=== PATIENT | female | born 1980 | race Caucasian/White ===

== ENCOUNTER 2017-01-29 05:09 | Inpatient (IN) | payer BC ==
[~2017-01-29] VITALS: Ht 165.1 cm; Wt 97.1 kg
[2017-01-29] VITALS (13 sets, daily range): BP systolic 110–150; BP diastolic 54–87
[~2017-01-29 05:09] MED LIST: BACLOFEN10 MG ORAL; CYMBALTA30 MG ORAL; FISH OIL CAP1000 MG ORAL; TRAZODONE HCL100 MG ORAL; VITAMIN D1000 UNI1 ORAL
[2017-01-29] MEDS ORDERED: Pantoprazole Inj IVP ONE (06:00)
[2017-01-29] MEDS ORDERED: Vancomycin 1gm/D5W 275ml IVPB ONE ×2 (06:00)
[2017-01-29 06:12] LABS: APPEARANCE,URINE CLEAR; KETONES,URINE 1+ (NEGATIVE); LEUKOCYTE ESTERASE ,URINE 3+ (NEGATIVE); NITRITE,URINE NEGATIVE (NEGATIVE); PH,URINE 5 (4.5-8.0); PROTEIN,URINE 1+ (NEGATIVE); UROBILINOGEN,URINE NORMAL MG/DL (0.0-1.0)
[2017-01-29] MEDS ORDERED: Bupivacaine w/Epi 0.5% 30ml Vial INJ ONE (06:15)
[2017-01-29] MEDS ORDERED: Bacitracin Oint 15gm Tube TOPIC ONE (06:15)
[2017-01-29] MEDS ORDERED: Thrombin 5000 units TOPIC ONE ×2 (06:15→11:37)
[2017-01-29] MEDS ORDERED: Bacitracin 50000 Units Vial ONE (06:16)
[2017-01-29] MEDS ORDERED: Vancomycin 1gm inj IVPB ONE ×2 (06:17→06:28)
[2017-01-29 06:18] LABS: BACTERIA,URINE FEW /HPF; RBC,URINE 0-2 /HPF (0 - 2); SQUAMOUS EPITHELIAL CELL,UR FEW /LPF (NONE/OCC)
[2017-01-29] MEDS ORDERED: Magnesium Sulfate 2ml Inj ONE (07:30)
[2017-01-29] MEDS ORDERED: Neostigmine 1mg/ml 10ml Inj ONE (07:30)
[2017-01-29] MEDS ORDERED: Zemuron 50mg/5ml Inj IV ONE (07:30)
[2017-01-29] MEDS ORDERED: fentaNYL 250mcg/5ml ONE (07:30)
[2017-01-29] MEDS ORDERED: Protamine Sulfate Inj ONE (07:30)
[2017-01-29] MEDS ORDERED: LR 1000ml ONE ×2 (07:30)
[2017-01-29] MEDS ORDERED: Dexamethasone 4mg/ml vial ONE (07:30)
[2017-01-29] MEDS ORDERED: Lidocaine 1% MPF 10mg/ml 5ml ONE (07:30)
[2017-01-29] MEDS ORDERED: Propofol 10mg/ml 20ml IV ONE (07:30)
[2017-01-29] MEDS ORDERED: Glycopyrrolate 0.2mg/ml 1ml Vial ONE (07:30)
[2017-01-29] MEDS ORDERED: LR 1000ml 1,000 ML IVLG SCH (07:36)
--- NOTE | 2017-01-29 07:38 | Anethesia Preoperative Eval ---
Anesthesia Pre-op PMH/ROS General Date of Evaluation: Jan 29, 2017 Time of Evaluation: 07:31 Anesthesiologist: Onel ASA Score: ASA 2 Mallampati Score Class I : Soft palate, uvula, fauces, pillars visible Class II: Soft palate, uvula, fauces visible Class III: Soft palate, base of uvula visible Class IV: Only hard plate visible Mallampati Classification: Class II Surgeon: Jose Roberto Diagnosis: Back Pain Surgical Procedure: PLIF L5-S1 Anesthesia History: none Family History: no anesthesia problems Allergies: Coded Allergies: No Known Allergies (Unverified , 01/28/17) Medications: see eMAR Past Medical History Hematology/Immune: Reports: anemia Other: obesity - BMI 36 Anesthesia Pre-op Phys. Exam Physician Exam Last Vital Signs Date Time Temp Pulse Resp B/P Pulse Ox O2 Delivery O2 Flow Rate FiO2 01/29/17 05:59 97.7 68 20 110/68 96 Room Air Constitutional: NAD Neurologic: CN 2-12 intact Cardiovascular: RRR Respiratory: CTA Gastrointestinal: S/NT/ND Airway Exam Mallampati Score: Class II MO: full ROM: limited Teeth: intact Anesthesia Pre-op A/P Risk Assessment & Plan Assessment: ASA 2 Plan: GA, Glidescope, BIS Status Change Before Surgery: No Pre-Antibiotics Dru Gram Vancomycin IV Given Within 1 Hr of Incision: Yes Time Given: 07:32 Abner Sykes MD Jan 29, 2017 07:38
--- NOTE | 2017-01-29 07:39 | Immediate Post-Op Evaluation ---
Immediate Post-Op Evalulation Immediate Post-Op Evalulation Procedure: PLIF L5-S1 Date of Evaluation: Jan 29, 2017 Time of Evaluation: 13:52 IV Fluids: 1200 LR Blood Products: 0 Estimated Blood Loss: 100 Urinary Output: 600 Blood Pressure Systolic: 150 Blood Pressure Diastolic: 81 Pulse Rate: 84 Respiratory Rate: 16 O2 Sat by Pulse Oximetry: 100 Temperature (Fahrenheit): 97.1 Pain Score (1-10): 2 Nausea: No Vomiting: No Complications 0 Patient Status: awake, reacts, patent, extubated, none Hydration Status: adequate Dru Gram Vancomycin IV Given Within 1 Hr of Incision: Yes Time Given: 07:32 Abner Sykes MD Jan 29, 2017 07:39
--- NOTE | 2017-01-29 07:39 | Pre-Procedure Note/Attestation ---
Pre-Procedure Note/Attestation Complete Prior to Procedure Planned Procedure: bilateral Procedure Narrative: Posterior lumbar decompression L5-S1, Interbody fusion at L5-S1 with PEEK interbody graft, allograft, autograft and bone marrow aspiration, posterolateral fusion and pedicle screw fixation. Attestation I attest that I discussed the nature of the procedure; its benefits; risks and complications; and alternatives (and the risks and benefits of such alternatives ), prior to the procedure, with the patient (or the patient's legal guest services representative). I attest that, if there was a reasonable possibility of needing a blood transfusion, the patient (or the patient's legal guest services representative) was given the [place] [facility] [employer] [facility] standardized written summary, pursuant to the Al[place] Joaquín Blood Safety Act ([place] Health and Safety Code # 1645, as amended). I attest that I re-evaluated the patient just prior to the surgery and that there has been no change in the patient's H&P, except as documented below: ZHEN HOLCOMB Jan 29, 2017 07:39
[2017-01-29] MEDS ORDERED: Labetalol 5mg/ml 20ml vial IV PRN (07:45)
[2017-01-29] MEDS ORDERED: Ketorolac 60mg Inj IV PRN (07:45)
[2017-01-29] MEDS ORDERED: Midazolam 2mg/2ml Inj IVP PRN (07:45)
[2017-01-29] MEDS ORDERED: Oxycodone/Acetaminophen 5-325 ORAL PRN (07:45)
[2017-01-29] MEDS ORDERED: Atropine Inj 1mg/10ml Syr IV PRN (07:45)
[2017-01-29] MEDS ORDERED: fentaNYL 100 mcg/2 mL IV PRN (07:45)
[2017-01-29] MEDS ORDERED: DiphenhydrAMINE 50mg/ml Inj IVP PRN ×2 (07:45→14:00)
[2017-01-29] MEDS ORDERED: Norco 7.5mg/325mg tab ORAL PRN (07:45)
[2017-01-29] MEDS ORDERED: Ketorolac 30mg Inj IV PRN (07:45)
[2017-01-29] MEDS ORDERED: Norco 5mg/325mg tab ORAL PRN (07:45)
[2017-01-29] MEDS ORDERED: Meperidine 25mg/ml Inj IV PRN (07:45)
[2017-01-29] MEDS ORDERED: Metoclopramide 10mg/2ml Inj IVP PRN (07:45)
[2017-01-29] MEDS ORDERED: Acetaminophen (Non formulary) 1,000 MG/100 ML ML IV ONE (08:00)
[2017-01-29] MEDS ORDERED: Gelfoam Absorbable 1gm powder pkt TOPIC ONE (08:23)
[2017-01-29] MEDS: Thrombin 5000 units spray kit TOPIC ONE ×3 (09:40→09:54)
[2017-01-29] MEDS: LORazepam Inj 2mg/ml 1ml IV PRN ×2 (13:57→14:23)
[2017-01-29] MEDS ORDERED: Rate Change PCA 1 Each MISC PRN (14:00)
[2017-01-29] MEDS ORDERED: LORazepam 1mg tab ORAL PRN (14:00)
[2017-01-29] MEDS ORDERED: PCA HYDROmorphone 1mg/ml 30 ML IV PRN (14:00)
[2017-01-29] MEDS ORDERED: Naloxone 0.4mg/ml Inj IVP PRN (14:00)
--- NOTE | 2017-01-29 14:19 | Brief Operative Note ---
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 R sided L5 hemilaminectomy foraminotomy and medial facetectomy 2. R transforaminal approach L5-S1 for decompression of nerve root with complete osteotomies of the inferior L5 Facet 3. Osteotomy L L5 Facet 4. Radical discectomy and preparation of disc space at L5-S1 5. Insertion of 8 mm Spinal element PEEK interbody spacer, autograft, allograft and bone marrow aspirate 6. Aspiration of iliac crest bone marrow from the Right side for fusion. 7. Internal neurolysis of the Right L5 and S1 roots 8. Application of epidural fat graft at L5-S1 9 Transpedicular fixation at the L5 and S1 levels bilaterally with 6 x 50 and 6 by 55 mm screws Medacta 10. [place] of bone from laminectomy for fusion 11. Intra-operative microdissection using operative microscope 12. Intra-op neuromonitoring, SSEPs, free-run EMG and Dermatomal monitoring and pedicle screw stimulation. 13. Posterolateral arthrodesis using allograft, autograft and bone marrow aspirate Bilaterally at L5-S1 14. Placement of epidural drain L5-S1 15. Plastic surgical closure of lumbar wound 9-cm 16. Modifier 22 due to complexity of the case and depth of approach secondary to pt's obesity. Post-op Diagnosis: same as pre-op Findings: consistent w/pre-op dx studies Surgeon: Wally Cid M.D. Sales Representative Door To Door: Oscar Gaspar M.D. Anesthesiologist: Dr. Onel GARCIA Anesthesia: general Specimen: yes - Disc Complications: none Condition: stable Fluids: 1.0 liter Estimated Blood Loss: volume - 100.00 Drains: hemovac Implant(s) used?: Yes - Spinal elements Interbody PEEK, Medacta Pedicle screws and [place] Allograft WALLY CID Jan 29, 2017 14:19
[2017-01-29] MEDS: Hydromorphone 0.5mg/0.5ml inj IVP PRN ×2 (14:22→14:59)
[2017-01-29] MEDS ORDERED: Milk of Magnesia 30ml Ud ORAL PRN (14:30)
[2017-01-29] MEDS ORDERED: Cyclobenzaprine 10mg Tab ORAL PRN (14:30)
--- NOTE | 2017-01-29 14:33 | General Progress Note ---
Progress Note Progress Note Neurosurgery Post-op S/ Comfortable. 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
[2017-01-29] MEDS: NS w/KCl 20mEq 1,000 ML IV SCH (17:05)
--- NOTE | 2017-01-29 17:20 | Diagnostic Imaging Report ---
Indication: PAIN, intraoperative imaging Technique: Digital intraoperative images Comparison: The Findings: Intraoperative images document localizer images, subsequent posterior fusion with placement of disc spacer and what appears to be L5-S1. Impression: Intraoperative imaging, as described
[2017-01-29] MEDS: Docusate 100mg tablet ORAL SCH (17:46)
[2017-01-29] MEDS: PCA shift volume MISC SCH (19:07)
[2017-01-29] MEDS: Vancomycin 1 GM in D5W 275 ML IVPB SCH (19:58)
[2017-01-29] MEDS: TraZODone 100mg tab ORAL SCH (21:02)
--- NOTE | 2017-01-29 23:48 | Operative Note - Dictated ---
DATE OF OPERATION: 01/29/2017 PREOPERATIVE DIAGNOSES: 1. Intractable severe low back pain and lower extremity radiculopathy, right side. 2. Bilateral pars defects, spondylolysis with grade 1 anterolisthesis of L5-S1. 3. Lack of improvement from multimodality treatment and interventional pain injections including lumbar epidural injections. POSTOPERATIVE DIAGNOSES: 1. Intractable severe low back pain and lower extremity radiculopathy, right side. 2. Bilateral pars defects, spondylolysis with grade 1 anterolisthesis of L5-S1. 3. Lack of improvement from multimodality treatment and interventional pain injections including lumbar epidural injections. PROCEDURES: 1. Posterior lumbar approach exposure of L5-S1 level bilaterally through intermuscular approach. 2. Right L5 hemilaminectomy, medial facetectomy, and foraminotomy with central and lateral recess decompression. 3. Right transforaminal approach L5-S1 level for decompression of nerve roots with complete osteotomies of the inferior facet of L5 and superior facet of S1. 4. Osteotomy of left inferior L5 facets for decompression of nerve roots. 5. Complete radical diskectomy of the L5-S1 level preparation of disk space, insertion of biomechanical device, PEEK cage interbody spacer 8 mm filled with autologous bone graft, allograft, and bone marrow aspirate. 6. Aspiration of bone marrow and aspiration of the right iliac crest for fusion. 7. Internal neurolysis of the right L5 and S1 nerve roots. 8. Transpedicular fixation of the L5 and S1 pedicles bilaterally using 6 x 50 mm and 6 x 55 mm screws, Hospicelinkacta system. 9. Application of fat graft through the epidural space, L5-S1 level. 10. [place] of bone from laminectomy for fusion. 11. Intraoperative microdissection using operative microscope. 12. Intraoperative neuromonitoring using somatosensory evoked potentials, free run electromyography, dermatomal monitoring, and pedicle screw stimulation. 13. Posterolateral arthrodesis using allograft, autograft, and bone marrow aspirate bilaterally at L5-S1 level. 14. Placement of epidural drain for the L5-S1 level on the right. 15. Plastic surgical closure of lumbar wound, 9 cm. 16. Modifier 22 will be used due to the complexity of the case and the depth of approach due to the patient's obesity. SURGEON: Wally Cid M.D. VB NET PROGRAMMER: Ciro Gaspar M.D. ANESTHESIOLOGIST: Dr. Alejandra. ANESTHESIA TYPE: General endotracheal anesthesia. ESTIMATED BLOOD LOSS: 100 mL. IV FLUIDS: One liter. SPECIMEN: Disk. INDICATION: The patient is a pleasant 36-year-old woman with severe low back pain with radiation of pain to the right lower extremity. She has undergone wide spectrum multimodality treatment including interventional pain injections in her lumbar region without improvement. IMAGING: Studies of the lumbar spine including MRI, CT scan, and x-rays were obtained, which showed evidence of bilateral spondylolysis at the L5-S1 level with anterolisthesis of L5-S1 with severe bilateral neural foraminal compromise. The risk of the operation including but not limited to risk of infection, bleeding, nerve damage, paralysis, coma, , spinal fluid leakage, requiring revision surgery, mishaps with anesthesia including coma and . Pseudoarthrosis requiring revision surgery, high likelihood of adjacent segment disease requiring additional injections or fusion in the future were all discussed with the patient in detail. She was understanding of my recommendations and signed a consent to proceed. DETAILS OF PROCEDURE: The patient was taken to the operating room. She was identified. She underwent an uneventful endotracheal intubation. She received preincisional IV antibiotics, Decadron and magnesium sulfate. Linton catheter was inserted. Neuromonitoring leads were attached. After an uneventful intubation, she was placed prone on a Darvin table. Care was taken to pad all pressure points including shoulders, elbows, wrists, knees, and hips. Back was prepped. Fluoroscopic images were obtained to localize the lumbar anatomy. Back was then prepped and draped in sterile fashion. A time-out was observed and the circulating nurse called the time-out. Microscope was brought to the field. The entire case was done under microscopic magnification. Using a #10 blade, incision was made in the lumbar region. Bleeders from the skin edges were coagulated using bipolar cautery. Dissection was carried down to the deep layer of the subcutaneous fascia. The deep subcutaneous fascia was opened. A fat specimen was then removed and placed in antibiotic irrigation solution. Two paramedian approaches were then created by incising the lumbodorsal fascia approximately 2.5 cm from midline. A plane was then developed between the multifidus and longissimus planes bilaterally down to the L5-S1 facet capsule complex. The intraoperative fluoroscopic images were obtained to localize and verify the correct level. Using high-speed drill, a left-sided osteotomy was performed of the inferior facet of L5. Pedicle screw pathways were created and a posterolateral arthrodesis was also performed by decorticating the L5 facet joint laterally placing bone in the posterolateral gutter. Two pedicle screws 6 mm, first one 50 mm and second one 55 mm were inserted at the S1 and L5 pedicle on the left side. EMG remained quiet through the insertion process. The attention was given to the right side. Again an intermuscular approach was created to the L5-S1 level. The L5 lamina was identified. The L5 lamina was highly mobile and loose due to the bilateral pars defect as observed on the left side. Using a osteotome, the inferior facet of L5 was completely removed along with a partial superior S1 facet. This provided significant decompression of the foraminal portion and decompressing the L5 foramen. A right transforaminal approach was then created to decompress the nerve root and gain access to the lateral aspect of the disk. Intraoperative neuromonitoring showed approximately 4 millisecond delay in the right S1 nerve root prior to decompression. The pedicle pathways were then created for the L5-S1 level on the right side using a gearshift. The screw path was tapped and then screws were placed measuring 50 x 6 mm and 6 x 55 mm at S1 and L5 levels respectively. Intraoperative fluoroscopic view was performed throughout the insertion process to verify the correct positioning of the screws and the modifier 22 will be used due to the great depth of the surgical corridor and difficulty in complexity of the case. After decompression of the central canal and the lateral recess at the L5-S1 level, a wide foraminotomy for the S1 nerve root was created using Kerrison punch. Decompression was carried out laterally to the level of the pedicle. Using microsurgical technique, the epidural adhesions wre carefully mobilized and incised with microscissor, and epidural veins were coagulated and incised to mobilize the Right L5 and S1 roots. Internal neurolysis was performed in this manner for both the right L5 and S1 roots. Both the L5 and S1 pedicles were palpable in the medial aspect. The L5-S1 disk space was then identified. The thecal sac was gently moved medially and well padded with Gelfoam and cottonoids. Using a #15 knife, an annulotomy was performed. The dissection was then carried out using pituitary rongeur and multiple sizers and cr that were sequentially inflated into the L5-S1 levels for the diskectomy process. After adequate preparation of the L5-S1 disk space, a 8 mm cage was then filled with autologous bone graft, Ekaterina, and bone marrow aspirate. A Jamshidi needle was used through a separate fascial incision to obtain 30 mL of bone marrow aspirate from the right iliac crest. The bone marrow aspirate was then handed off to a infrastructure technician, who then returned approximately 3 mL of highly concentrated bone marrow aspirate to the field. This concentrate was mixed with Gilliam and autologous bone graft prior to the insertion into the disk space. After insertion of the cage, the pedicle screws were tested, which showed no evidence of electrical breach. 35 mm rods were then used to perform the posterolateral arthrodesis along with autologous bone graft and allograft. Set screws were then inserted and the francis was fixed in place and torqued properly. The wound was irrigated with copious amount of antibiotic irrigation. Final fluoroscopic images showed excellent position of the cage and pedicle screws also. The dorsal fascia layers were closed using 2-0 Vicryl stitches. The wound was irrigated with copious amount of antibiotic irrigation. The rest of the incision was also closed using plastic surgical technique in multiple layer including the subcuticular layer. The subcuticular layer was closed using 3-0 Vicryl stitches in interrupted fashion. Skin was dressed with Dermabond and Steri-Strips. A Hemovac drain was also inserted on the right side over the decompression at the L5-S1 level and brought out through a separate stab incision. The drain was secured to the skin using Steri-Strips and a sterile dressing gauze. The patient was then extubated at the end of the case moving all extremities. The patient's family were also notified about the patient's condition at the end of the case. COMPLICATIONS: None. Wally Cid M.D. DR: Howard JOB#: [id number] CC: ZAIN
[2017-01-30] VITALS: BP 102/57
[2017-01-30 04:00] VITALS: BP 110/70
[2017-01-30] MEDS: NS w/KCl 20mEq 1,000 ML IV SCH ×2 (04:19→15:30)
[2017-01-30 06:32] LABS: BASOPHILS % (AUTO) 0.4 % (0.0-2.0); LYMPHOCYTES % (AUTO) 10.5 % (20.0-45.0); MEAN CORPUSCULAR HEMOGLOBIN 28.2 PG (27.0-31.0); MEAN CORPUSCULAR HGB CONC 32.3 G/DL (32.0-36.0); MEAN CORPUSCULAR VOLUME 87 FL (80-99); MEAN PLATELET VOLUME 8.6 FL (6.5-10.1); MONOCYTES % (AUTO) 8.6 % (1.0-10.0); NEUTROPHILS % (AUTO) 80.4 % (45.0-75.0); PLATELET COUNT 233 K/UL (150-450); RED BLOOD COUNT 4.16 M/UL (4.20-5.40); WHITE BLOOD COUNT 12.6 K/UL (4.8-10.8)
[2017-01-30 06:40] LABS: ANION GAP 7 (5-15); CALCIUM 7.9 mg/dL (8.6-10.2); CARBON DIOXIDE 28 mEQ/L (20-30); CHLORIDE 104 mEQ/L (98-107); CREATININE 0.9 mg/dL (0.5-0.9); GLOMERULAR FILTRATION RATE > 60 mL/min (>60); HEMOLYSIS 1; MAGNESIUM 2.1 mg/dL (1.7-2.5); POTASSIUM 4.6 mEQ/L (3.4-4.9); SODIUM 139 mEQ/L (135-145)
[2017-01-30] MEDS: PCA shift volume MISC SCH (07:17)
[2017-01-30 08:00] VITALS: BP 104/78
[2017-01-30] MEDS: Docusate 100mg tablet ORAL SCH ×2 (09:07→18:29)
[2017-01-30] MEDS: Vancomycin 1 GM in D5W 275 ML IVPB SCH (09:07)
[2017-01-30] MEDS: DULoxetine 30mg cap ORAL SCH (09:07)
[2017-01-30 12:00] VITALS: BP 131/63
--- NOTE | 2017-01-30 12:55 | 48 Hour Post Anesthesia Eval ---
Post Anesthesia Evaluation Procedure: PLIF L5-S1 Date of Evaluation: Jan 30, 2017 Time of Evaluation: 12:53 Blood Pressure Systolic: 104 0: 64 Pulse Rate: 62 Respiratory Rate: 20 Temperature (Fahrenheit): 97.6 O2 Sat by Pulse Oximetry: 98 Airway: patent Nausea: No Vomiting: No Pain Intensity: 3 Hydration Status: adequate Cardiopulmonary Status: stable Mental Status/LOC: patient returned to baseline Follow-up Care/Observations: n/a Post-Anesthesia Complications: none Follow-up care needed: N/A ALEJANDRA HALL M.D. Jan 30, 2017 12:55
--- NOTE | 2017-01-30 13:09 | Diagnostic Imaging Report ---
Indications: Low back pain Technique: Continuous helical CT imaging of the lumbar spine was performed with automatic exposure control on a Siemens sensation [address] scanner. Axial, coronal, and sagittal images were reconstructed at 3 mm slice thicknesses. CTDI volume(s): 41 mGy Total DLP: 1387 mGy-cm Findings: Comparison: Lumbar radiographs 01/29/2017 Again noted are several millimeter anterior subluxation of L5 on S1, fusion hardware within the L5-S1 disc space, right hemilaminectomy defect at L5, bilateral pedicle screws within L5 and S1 bridged by longitudinal rods bilaterally. Bilateral pars interarticularis defects are present at L5. Mild swelling and a few gas bubbles are present within the posterior paraspinous soft tissues at these levels. Small caliber catheter extends from the posterior skin surface to the right lateral margin of S1 posterior elements. Spinal canal is difficult to assess at this level due to extensive artifact from metallic fusion hardware. The L1-2 through L3-4 intervertebral disc spaces are normal in height. There is suggestion of very mild annular bulge at L3-4 and L4-5. Facet joints and ligaments at these levels are not overtly hypertrophied. Spinal canal, lateral recesses and neural foramina at these levels are not overtly narrowed. Remainder of vertebral alignment is intact. The L1 vertebral body demonstrates mild compression of the superior endplate with less than 10% height loss, minimal retropulsion. No associated lucent fracture line, posterior element involvement, or underlying lytic destructive process. Remaining lumbar vertebral bodies normal in height. Focal sclerosis in T12 vertebral body. IMPRESSION: Evidence of recent right hemilaminectomy, anterior and posterior fusion at L5-S1. Posterior paraspinous soft tissue swelling and gas are within normal limits for recent postoperative state. Spinal canal difficult to assess due to artifact as described. L5 bilateral spondylolysis, grade 1 anterior spondylolisthesis Mild annular disc bulges at L3-4 and L4-5 without obvious spinal stenosis/neural impingement Mild compression fracture L1 vertebral body superior endplate, probably old
--- NOTE | 2017-01-30 13:26 | General Progress Note ---
Progress Note Progress Note Neurosurgery Post-op 1 S/Pain under control. Too drowsy with Dilaudid ORTHO RN. ORTHO RN was D/c's pt recieved one dose of Narcan. Ct lumbar spine complete O/ Vs Last 24 Hour Vital Signs Date Time Temp Pulse Resp B/P Pulse Ox O2 Delivery O2 Flow Rate FiO2 01/30/17 12:55 62 20 98 01/30/17 08:00 17 01/30/17 08:00 97.7 87 18 104/78 94 Room Air 01/30/17 04:00 97.6 73 19 110/70 88 Room Air 01/30/17 04:00 18 01/30/17 03:56 97.8 01/30/17 00:00 18 01/30/17 00:00 97.8 61 19 102/57 90 Room Air 01/29/17 20:00 18 01/29/17 20:00 97.7 79 20 118/59 88 Room Air 01/29/17 16:00 18 01/29/17 16:00 97.9 69 17 111/87 96 Room Air 01/29/17 15:30 16 01/29/17 15:15 97.8 77 11 112/54 98 Nasal Cannula 3.0 01/29/17 15:10 97.1 01/29/17 15:10 97.1 01/29/17 15:05 11 01/29/17 15:05 76 11 111/56 98 Nasal Cannula 3.0 01/29/17 14:50 73 12 120/59 100 Nasal Cannula 3.0 01/29/17 14:50 15 01/29/17 14:50 97.1 01/29/17 14:35 68 13 120/60 100 Nasal Cannula 3.0 01/29/17 14:35 11 01/29/17 14:26 97.1 01/29/17 14:20 80 11 120/73 100 Nasal Cannula 3.0 01/29/17 14:20 15 01/29/17 14:06 71 15 120/62 100 Nasal Cannula 3.0 01/29/17 13:56 70 17 119/62 100 Nasal Cannula 3.0 01/29/17 13:51 68 17 129/64 100 Simple Mask 6.0 01/29/17 13:46 75 17 134/74 100 Simple Mask 6.0 01/29/17 13:41 97.1 78 24 150/85 100 Simple Mask 6.0 01/29/17 13:41 84 16 100 Alert and oriented, C/o of H/A Face symmetric. Moves all extremities well normal sensation in the face and all extremities Dressing completely dry. No fluctuance Drain about 60 cc serosang clear drainage Labs. Laboratory Tests Test 01/30/17 05:45 White Blood Count 12.6 K/UL (4.8-10.8) H Red Blood Count 4.16 M/UL (4.20-5.40) L Hemoglobin 11.8 G/DL (12.0-16.0) L Hematocrit 36.4 % (37.0-47.0) L Mean Corpuscular Volume 87 FL (80-99) Mean Corpuscular Hemoglobin 28.2 PG (27.0-31.0) Mean Corpuscular Hemoglobin Concent 32.3 G/DL (32.0-36.0) Red Cell Distribution Width 13.0 % (11.6-14.8) Platelet Count 233 K/UL (150-450) Mean Platelet Volume 8.6 FL (6.5-10.1) Neutrophils (%) (Auto) 80.4 % (45.0-75.0) H Lymphocytes (%) (Auto) 10.5 % (20.0-45.0) L Monocytes (%) (Auto) 8.6 % (1.0-10.0) Eosinophils (%) (Auto) 0.0 % (0.0-3.0) Basophils (%) (Auto) 0.4 % (0.0-2.0) Sodium Level 139 mEQ/L (135-145) Potassium Level 4.6 mEQ/L (3.4-4.9) Chloride Level 104 mEQ/L (98-107) Carbon Dioxide Level 28 mEQ/L (20-30) Anion Gap 7 (5-15) Blood Urea Nitrogen 10 mg/dL (7-23) Creatinine 0.9 mg/dL (0.5-0.9) Estimat Glomerular Filtration Rate > 60 mL/min (>60) Glucose Level 127 mg/dL (74-106) H Calcium Level 7.9 mg/dL (8.6-10.2) L Magnesium Level 2.1 mg/dL (1.7-2.5) CT Lumbar spine reviewed Instrumentation in good position at the L5-S1 level. No hematoma or fluid collection D/c dilaudid. Change to Morphine sulfate prn and orals Zofram for N/v PT in am spoke with pt's and updated him re Pt's condition. ZHEN HOLCOMB Jan 30, 2017 13:26
[2017-01-30 16:00] VITALS: BP 102/62
[2017-01-30 20:00] VITALS: BP 113/66
[2017-01-30] MEDS: TraZODone 100mg tab ORAL SCH (21:15)
[2017-01-30] MEDS: Morphine Sulfate 2mg/ml Inj IVP PRN (23:49)
[2017-01-31] VITALS: BP 111/59
[2017-01-31] MEDS: NS w/KCl 20mEq 1,000 ML IV SCH ×3 (00:30→21:50)
[2017-01-31] MEDS: Morphine Sulfate 2mg/ml Inj IVP PRN (03:58)
[2017-01-31 04:00] VITALS: BP 101/56
[2017-01-31 08:00] VITALS: BP 122/62
--- NOTE | 2017-01-31 08:08 | General Progress Note ---
Progress Note Progress Note Neurosurgery POD#2 S/ Incisional pain, O/ Vs Last 24 Hour Vital Signs Date Time Temp Pulse Resp B/P Pulse Ox O2 Delivery O2 Flow Rate FiO2 01/31/17 04:28 98.6 01/31/17 04:00 97.9 73 18 101/56 99 Nasal Cannula 3.0 01/31/17 00:00 97.7 76 18 111/59 99 Nasal Cannula 2.0 01/30/17 20:00 98.6 74 18 113/66 100 Nasal Cannula 3.0 01/30/17 16:00 97.9 87 18 102/62 100 Nasal Cannula 2.0 01/30/17 12:55 62 20 98 01/30/17 12:00 96.4 68 20 131/63 99 Nasal Cannula 2.0 Alert and oriented x4 Moves all extremities normal sensation in all lower extremity dermatomes tested, including L4, L5 and S1 Motor exam is 5/5 in all proximal and distal muscle groups tested. Incision is completely dry HV removed at bedside without complications. Imaging findings discussed with patient and her in detail. Encourage ambulation pain control bowel care PT ZHEN HOLCOMB Jan 31, 2017 08:08
[2017-01-31] MEDS ORDERED: Morphine Sulfate 2mg/ml Inj IVP PRN (08:22)
--- NOTE | 2017-01-31 08:24 | General Progress Note ---
Progress Note Progress Note Addendum, A new set of vitals obtained Sat on 3liter NC is 92%. She is no distress. Her color is normal. will obtain ABG, C-XR, Bilateral lower extremity Doppler Medicine consult requested. ZHEN HOLCOMB Jan 31, 2017 08:24
--- NOTE | 2017-01-31 08:29 | General Progress Note ---
Progress Note Progress Note Neurosurgery addendum S/ Able to take deep breath but c/o pain with deep breathing ant chest Sat is 99% on 3liters NC. The initial read of 92% was on R/A will get the diagnostics to r/o DVT. ZHEN HOLCOMB Jan 31, 2017 08:29
[2017-01-31 08:53] LABS: ABG BASE EXCESS 5
[2017-01-31] MEDS: DULoxetine 30mg cap ORAL SCH (09:10)
[2017-01-31] MEDS: Docusate 100mg tablet ORAL SCH ×3 (09:10→18:46)
[2017-01-31] MEDS: Oxycodone/Acetaminophen 5-325 ORAL SCH ×5 (09:10→21:58)
--- NOTE | 2017-01-31 09:58 | Diagnostic Imaging Report ---
Indication: SOB Technique: XRAY CHEST 1 V Comparison:None Findings: The heart is normal in size. The patient is rotated. Linear density is noted in the left medial base. The patient has taken a poor inspiration. No other gross infiltrates. No pleural fluid. Impression: Poor inspiration. Atelectasis left base. No other gross abnormality.
[2017-01-31 12:00] VITALS: BP 110/53
[2017-01-31] MEDS ORDERED: HYDROmorphone 1mg/ml Carpuject SUBQ PRN (14:30)
[2017-01-31] MEDS ORDERED: Norco 7.5mg/325mg tab ORAL PRN ×2 (14:30)
--- NOTE | 2017-01-31 15:55 | General Progress Note ---
Assessment/Plan Status Narrative s/p complex spine surgery doing ok POST OP DAY # 2 PT OT R/O DVT NEGATIVE DUPLEX ABG NOTED ? ELEVATED pco@ ? VENOUS///// DOING BETTER SATURATING WELL ON ROOM AIR NOT TACHYCARDIC WILL CHECK CBC AND UA THE UA WAS SLIGHTLY PYURIC WILL MONITOR DOING BETTER THAN YESTAERDAY PER NURSING STAFF I AM UNBALE TO SEE MY NOTE FROM YESTERDAY. Subjective Date patient seen: Jan 31, 2017 Time patient seen: 15:51 Constitutional: Reports: no symptoms HEENT: Reports: no symptoms Gastrointestinal/Abdominal: Reports: no symptoms Genitourinary: Reports: no symptoms Allergies: Coded Allergies: No Known Allergies (Unverified , 01/28/17) Subjective has had pain no fever doign better walked well no diplopia no nausea Objective Last 24 Hour Vital Signs Date Time Temp Pulse Resp B/P Pulse Ox O2 Delivery O2 Flow Rate FiO2 01/31/17 12:00 97.3 54 16 110/53 94 Nasal Cannula 3.0 01/31/17 10:09 97.5 01/31/17 08:00 97.5 71 16 122/62 99 Nasal Cannula 3.0 01/31/17 04:28 98.6 01/31/17 04:00 97.9 73 18 101/56 99 Nasal Cannula 3.0 01/31/17 00:00 97.7 76 18 111/59 99 Nasal Cannula 2.0 01/30/17 20:00 98.6 74 18 113/66 100 Nasal Cannula 3.0 01/30/17 16:00 97.9 87 18 102/62 100 Nasal Cannula 2.0 Intake and Output 01/30/17 01/31/17 19:00 07:00 Intake Total 1400 ml 500 ml Output Total 400 ml 550 ml Balance 1000 ml -50 ml Intake Oral 200 ml 500 ml IV Total 1200 ml Output Urine Total 400 ml 500 ml Drainage Total 50 ml Laboratory Tests 01/31/17 08:39: Arterial Blood pH 7.410, Arterial Blood Partial Pressure CO2 50.0H, Arterial Blood Partial Pressure O2 97.0, Arterial Blood HCO3 31.0H, Arterial Blood Oxygen Saturation 97.0, Arterial Blood Base Excess 5, Iggy Test Height (Feet): 5 Height (Inches): 5.00 Weight (Pounds): 214 General Appearance: WD/WN Neck: other - no jvd Cardiovascular: normal rate, regular rhythm Respiratory/Chest: respiratory distress - left base diminished breath sound, other - there is no wheezing Abdomen: soft Extremities: other - no edema no clubbing MIKE ARMENTA Jan 31, 2017 15:55
[2017-01-31 16:00] VITALS: BP 123/49
[2017-01-31 17:33] LABS: APPEARANCE,URINE CLEAR; KETONES,URINE NEGATIVE (NEGATIVE); LEUKOCYTE ESTERASE ,URINE NEGATIVE (NEGATIVE); NITRITE,URINE NEGATIVE (NEGATIVE); PH,URINE 6.5 (4.5-8.0); PROTEIN,URINE NEGATIVE (NEGATIVE); UROBILINOGEN,URINE NORMAL MG/DL (0.0-1.0)
[2017-01-31 17:38] LABS: WBC,URINE 0-2 /HPF (0 - 2)
[2017-01-31 18:39] LABS: BASOPHILS % (AUTO) 0.6 % (0.0-2.0); EOSINOPHILS % (AUTO) 0.2 % (0.0-3.0); LYMPHOCYTES % (AUTO) 19.3 % (20.0-45.0); MEAN CORPUSCULAR HEMOGLOBIN 29.4 PG (27.0-31.0); MEAN CORPUSCULAR HGB CONC 33.6 G/DL (32.0-36.0); MEAN CORPUSCULAR VOLUME 88 FL (80-99); MONOCYTES % (AUTO) 7.4 % (1.0-10.0); NEUTROPHILS % (AUTO) 72.5 % (45.0-75.0); PLATELET COUNT 154 K/UL (150-450); RED BLOOD COUNT 3.54 M/UL (4.20-5.40); RED CELL DISTRIBUTION WIDTH 12.9 % (11.6-14.8); WHITE BLOOD COUNT 8.6 K/UL (4.8-10.8)
[2017-01-31 20:00] VITALS: BP 125/57
[2017-01-31] MEDS: TraZODone 100mg tab ORAL SCH (21:50)
[2017-02-01] MEDS: Oxycodone/Acetaminophen 5-325 ORAL SCH ×5 (00:35→17:18)
[2017-02-01 04:00] VITALS: BP 122/69
[2017-02-01 04:57] LABS: BASOPHILS % (AUTO) 0.8 % (0.0-2.0); EOSINOPHILS % (AUTO) 0.7 % (0.0-3.0); LYMPHOCYTES % (AUTO) 19.4 % (20.0-45.0); MEAN CORPUSCULAR HEMOGLOBIN 28.3 PG (27.0-31.0); MEAN CORPUSCULAR HGB CONC 32.5 G/DL (32.0-36.0); MEAN CORPUSCULAR VOLUME 87 FL (80-99); MEAN PLATELET VOLUME 8.6 FL (6.5-10.1); MONOCYTES % (AUTO) 7.8 % (1.0-10.0); NEUTROPHILS % (AUTO) 71.3 % (45.0-75.0); PLATELET COUNT 176 K/UL (150-450); RED BLOOD COUNT 3.53 M/UL (4.20-5.40); RED CELL DISTRIBUTION WIDTH 12.8 % (11.6-14.8); WHITE BLOOD COUNT 8.2 K/UL (4.8-10.8)
[2017-02-01] MEDS: NS w/KCl 20mEq 1,000 ML IV SCH (06:07)
[2017-02-01 08:00] VITALS: BP 122/75
[2017-02-01] MEDS ORDERED: Oxycodone/Acetaminophen 5-325 ORAL PRN (08:15)
[2017-02-01] MEDS: DULoxetine 30mg cap ORAL SCH (08:56)
[2017-02-01] MEDS: Docusate 100mg tablet ORAL SCH ×2 (08:56→17:17)
[2017-02-01] MEDS ORDERED: Lactulose 20gm/30ml UDC ORAL PRN (10:45)
--- NOTE | 2017-02-01 10:50 | General Progress Note ---
Progress Note Progress Note Neurosurgery POD#3 S/ Incisional pain much better. Ambulated yesterday pm. C/o Headache. Improved with Fiorecet. Had a similar Headache "while back" H/a is Frontal. No Nausea/vomiting yesterday or this am. Tolerating po's. No BM O/ Vs Last 24 Hour Vital Signs Date Time Temp Pulse Resp B/P Pulse Ox O2 Delivery O2 Flow Rate FiO2 02/01/17 08:00 98.2 75 18 122/75 95 Room Air 02/01/17 04:00 98.2 68 18 122/69 94 Room Air 01/31/17 20:00 98.2 63 18 125/57 95 Room Air 01/31/17 16:00 98.4 63 18 123/49 94 01/31/17 15:59 96 Room Air 01/31/17 12:00 97.3 54 16 110/53 94 Nasal Cannula 3.0 O/ Alert and oriented x4 Face symmetric pupils reactive and equal Moves all extremities well normal motor and sensory exam bilaterally Labs Laboratory Tests Test 01/31/17 16:45 01/31/17 18:20 02/01/17 04:30 Urine Color Pale yellow Urine Appearance Clear Urine pH 6.5 (4.5-8.0) Urine Specific [place] 1.015 (1.005-1.035) Urine Protein Negative (NEGATIVE) Urine Glucose (UA) Negative (NEGATIVE) Urine Ketones Negative (NEGATIVE) Urine Occult Blood 3+ (NEGATIVE) H Urine Nitrite Negative (NEGATIVE) Urine Bilirubin Negative (NEGATIVE) Urine Urobilinogen Normal MG/DL (0.0-1.0) Urine Leukocyte Esterase Negative (NEGATIVE) Urine RBC 2-4 /HPF (0 - 2) H Urine WBC 0-2 /HPF (0 - 2) Urine Squamous Epithelial Cells None /LPF (NONE/OCC) Urine Bacteria None /HPF (NONE) White Blood Count 8.6 K/UL (4.8-10.8) 8.2 K/UL (4.8-10.8) Red Blood Count 3.54 M/UL (4.20-5.40) L 3.53 M/UL (4.20-5.40) L Hemoglobin 10.4 G/DL (12.0-16.0) L 10.0 G/DL (12.0-16.0) L Hematocrit 31.0 % (37.0-47.0) L 30.8 % (37.0-47.0) L Mean Corpuscular Volume 88 FL (80-99) 87 FL (80-99) Mean Corpuscular Hemoglobin 29.4 PG (27.0-31.0) 28.3 PG (27.0-31.0) Mean Corpuscular Hemoglobin Concent 33.6 G/DL (32.0-36.0) 32.5 G/DL (32.0-36.0) Red Cell Distribution Width 12.9 % (11.6-14.8) 12.8 % (11.6-14.8) Platelet Count 154 K/UL (150-450) 176 K/UL (150-450) Mean Platelet Volume 8.0 FL (6.5-10.1) 8.6 FL (6.5-10.1) Neutrophils (%) (Auto) 72.5 % (45.0-75.0) 71.3 % (45.0-75.0) Lymphocytes (%) (Auto) 19.3 % (20.0-45.0) L 19.4 % (20.0-45.0) L Monocytes (%) (Auto) 7.4 % (1.0-10.0) 7.8 % (1.0-10.0) Eosinophils (%) (Auto) 0.2 % (0.0-3.0) 0.7 % (0.0-3.0) Basophils (%) (Auto) 0.6 % (0.0-2.0) 0.8 % (0.0-2.0) PT/OT Ambulate Bowel care D/c planning Brace on order. Fioricet prn for H/a ZHEN HOLCOMB Feb 01, 2017 10:50
[2017-02-01] MEDS: Milk of Magnesia 30ml Ud ORAL SCH ×2 (11:06→13:38)
[2017-02-01 12:00] VITALS: BP 113/58
[2017-02-01] MEDS ORDERED: NS w/KCl 20mEq 1,000 ML IV SCH (12:00)
[2017-02-01 16:00] VITALS: BP 117/74
[2017-02-01] MEDS ORDERED: Lactulose 20gm/30ml UDC ORAL ONE (17:30)
[2017-02-01] MEDS ORDERED: COLACE100 MG ORAL (17:39)
[2017-02-01] MEDS ORDERED: PERCOCET 5-3251 EACH ORAL (17:39)
[2017-02-01] MEDS ORDERED: CYCLOBENZAPRINE10 MG ORAL (17:43)
[2017-02-01] MEDS ORDERED: MIRALAX17 G2 ORAL (17:44)
--- NOTE | 2017-02-01 19:42 | General Progress Note ---
Assessment/Plan Status Narrative s/p speine surgery [post op atelectaisis eladia wong doing well dc home increase ambulation Subjective Date patient seen: Feb 01, 2017 Time patient seen: 19:41 Constitutional: Reports: no symptoms HEENT: Reports: no symptoms Allergies: Coded Allergies: No Known Allergies (Unverified , 01/28/17) Subjective has hade bm doing better going home Objective Last 24 Hour Vital Signs Date Time Temp Pulse Resp B/P Pulse Ox O2 Delivery O2 Flow Rate FiO2 02/01/17 16:00 97.7 70 18 117/74 100 Room Air 02/01/17 12:00 98.6 72 18 113/58 94 Room Air 02/01/17 08:00 98.2 75 18 122/75 95 Room Air 02/01/17 04:00 98.2 68 18 122/69 94 Room Air 01/31/17 20:00 98.2 63 18 125/57 95 Room Air Intake and Output 01/31/17 02/01/17 19:00 07:00 Intake Total 1070 ml 520 ml Output Total 500 ml 700 ml Balance 570 ml -180 ml Intake Oral 120 ml 420 ml IV Total 950 ml 100 ml Output Urine Total 500 ml 700 ml Laboratory Tests 02/01/17 04:30: White Blood Count 8.2, Red Blood Count 3.53L, Hemoglobin 10.0L, Hematocrit 30.8L , Mean Corpuscular Volume 87, Mean Corpuscular Hemoglobin 28.3, Mean Corpuscular Hemoglobin Concent 32.5, Red Cell Distribution Width 12.8, Platelet Count 176, Mean Platelet Volume 8.6, Neutrophils (%) (Auto) 71.3, Lymphocytes (% ) (Auto) 19.4L, Monocytes (%) (Auto) 7.8, Eosinophils (%) (Auto) 0.7, Basophils (%) (Auto) 0.8 Height (Feet): 5 Height (Inches): 5.00 Weight (Pounds): 214 General Appearance: WD/WN Neck: non-tender Cardiovascular: no JVD Respiratory/Chest: lungs clear MIKE ARMENTA Feb 01, 2017 19:42
--- NOTE | 2017-02-02 01:48 | Discharge Summary ---
DATE OF ADMISSION: 01/29/2017 DATE OF DISCHARGE: 02/01/2017 DISCHARGE DIAGNOSES: 1. Status post posterior lumbar decompressive surgery. 2. Interbody fusion. 3. Pedicle screw fixation, L5-S1 level. 4. Grade 1 spondylolisthesis and bilateral spondylolysis. HISTORY OF PRESENT ILLNESS: Refer to the chart for detailed H and P. HOSPITAL COURSE: The patient was admitted on 01/29/2017 and underwent an uneventful posterior lumbar decompressive surgery, diskectomy, fusion, stabilization for the L5-S1 level with pedicle screw fixation, interbody graft, and iliac crest bone marrow aspiration. She had an episode of leg pain and shortness of breath. This was worked up with multiple studies including bilateral lower extremity Dopplers, ABGs, and chest x-ray. These studies were significant for atelectasis. She has been on incentive spirometer. She is ambulating. She is feeling much better. She is tolerating POs. DISCHARGE INSTRUCTIONS: Discharge instructions were relayed to the patient and her in detail. In case of fever, chills, or drainage from the incision, the patient is to contact Dr. Cid or go to the nearest ER. Follow up with Dr. Cid in two weeks. CONSULTATIONS: Included Physical Therapy and Internal Medicine, Dr. Garrison Gama. MEDICATIONS: Flexeril 5 mg one p.o. q.8 h. as needed, Percocet 5/325 mg one p.o. q.6 h. as needed, and Colace 100 mg twice daily. The patient is also asked to take MiraLAX, [id number] as directed for constipation. COMPLICATIONS: None. Wally Cid M.D. DR: PRO JOB#: [id number] CC:
--- NOTE | 2017-02-02 09:48 | Progress Note ---
NOTE: VERY POOR AUDIO QUALITY SUBJECTIVE: medication. The patient . She ____. OBJECTIVE: VITAL SIGNS: Stable. HEENT: Normocephalic and atraumatic. Anicteric sclerae. NECK: No JVD or carotid bruit. HEART: S1 and S2. LUNGS: Clear. ABDOMEN: Soft. ASSESSMENT: . PLAN: . Garrison Gama M.D. DR: WALLY JOB#: [id number] CC:
--- NOTE | 2017-02-05 23:17 | Diagnostic Imaging Report ---
APPROVED REPORT CPT Code: 34199 Present Symptoms Lower Extremity Pain: Bilateral BILATERAL: Imaging reveals a patent deep venous system bilaterally. There is no evidence of thrombus within the femoral, popliteal or tibial segments. The greater saphenous veins are also within normal limits. Doppler indicates normal spontaneous flow within these segments.
== END 2017-02-01 19:58 | disposition home or self-care (01) | DRG 460 ==
LOC: SDSOVERFLO 05:09 → 3E 15:58
PROC: 0SG30A1 (ICD-10-PCS; principal; 2017-01-29 07:00)
PROC: 07DR3ZZ Extraction of Iliac Bone Marrow, Percutaneous Approach (ICD-10-PCS; principal; 2017-01-29 07:00)
PROC: 0ST40ZZ Resection of Lumbosacral Disc, Open Approach (ICD-10-PCS; principal; 2017-01-29 07:00)
DX: M51.17 Intervertebral disc disorders with radiculopathy, lumbosacral region (principal); J98.11 Atelectasis; M47.27 Other spondylosis with radiculopathy, lumbosacral region; M43.17 Spondylolisthesis, lumbosacral region; M79.606 Pain in leg, unspecified; E66.9 Obesity, unspecified
CPT/HCPCS: 36415; 36600; 71010; 72020; 72131; 76001; 80048; 81001; 81003; 82803; 83735; 85025; 86850; 86900; 86901; 87081; 87086; 93970; 94003; 94150; J2180; J2405; J2710